=== PATIENT | female | born 1965 | race Caucasian/White ===

== ENCOUNTER 2021-01-07 14:46 | Outpatient (CLI) | payer BC | END 2021-01-07 14:47 | disposition home or self-care (01) | LOC: BICCT 14:46 | PROVIDERS: ATTEND Orthopaedic Surgery | DX: S82.141A Displaced bicondylar fracture of right tibia, initial encounter for closed fracture (principal); S82.134A Nondisplaced fracture of medial condyle of right tibia, initial encounter for closed fracture ==